=== PATIENT | male | born 1955 | race Caucasian/White ===

== ENCOUNTER 2018-06-13 18:34 | Emergency (ER) | payer SELFPAY ==
[~2018-06-13] VITALS: Ht 177.8 cm; Wt 103.6 kg
[~2018-06-13 18:34] MED LIST: ASPIRIN E.C. 8181 MG PO; CIALIS20 MG PO; DIOVAN 40MG40 MG PO; DUO-KAPS1 CAP PO; HYDRODIURIL50 MG PO; INDOCIN 25MG CA25 MG PO; LIPITOR20 MG PO; NORVASC 5MG5 MG/TAB PO; OMEGA 31000 MG PO; TRANDATE 100MG100 MG PO; ZYLOPRIM 300MG300 MG PO
[2018-06-13 18:38] VITALS: TEMP 98.1
[2018-06-13 20:22] LABS: BASO # 0.1 (0.0-0.2); BASO % 0.9 % (0.0-2.0); EOS # 0.3 (0.0-0.7); EOS % 3.4 % (0-4.0); GRAN # 4.9 (1.4-6.5); GRAN % 63.9 % (42.2-75.2); HEMATOCRIT 40.6 % (42.0-52.0); LYMPH # 1.7 (1.2-3.4); LYMPH % 21.8 % (20.0-51.0); MEAN CELL VOLUME 85 fl (80.0-100.0); MEAN CORPUSCULAR HEMOGLOBIN 31 pg (27.0-31.0); MEAN CORPUSCULAR HGB CONC 37 g/dl (33.0-37.0); MEAN PLATELET VOLUME 9.4 fl (7.4-10.4); MONO # 0.7 (0.1-0.6); MONO % 9.6 % (1.7-9.3); PLATELET COUNT 215 K/mm3 (130-400); REDCELL DISTRIBUTION WIDTH-CV 11.9 % (11.5-14.5)
[2018-06-13 20:33] LABS: COLLECTION METHOD CLEAN CATCH
[2018-06-13 20:33] LABS: CALCIUM 9.2 mg/dL (8.4-10.2); CREATININE, serum 0.96 mg/dL (0.66-1.25); POTASSIUM 3.3 mmol/L (3.4-5.0)
[2018-06-13] MEDS ORDERED: PHARMASSURE MA500 MG PO (20:40)
[2018-06-13] MEDS ORDERED: NATURAL FLAX1000 MG PO (20:40)
[2018-06-13] MEDS ORDERED: GARLIC100 MG PO (20:40)
[2018-06-13] MEDS ORDERED: MYSOLINE 5050 MG/TAB PO (20:40)
[2018-06-13] MEDS ORDERED: NORVASC 10MG10 MG PO (20:41)
[2018-06-13] MEDS ORDERED: KLOR-CON 1010 MEQ PO (20:41)
[2018-06-13] MEDS ORDERED: BENICAR40 MG PO (20:41)
[2018-06-13] MEDS ORDERED: KLOR-CON M2020 MEQ PO (20:41)
[2018-06-13] MEDS ORDERED: PRILOSEC 20MG20 MG PO (20:42)
[2018-06-13] MEDS ORDERED: HYGROTON 2525 MG/TAB PO (20:42)
[2018-06-13] MEDS ORDERED: NORMODYNE200 MG PO (20:42)
[2018-06-13 20:55] LABS: PH 5 (5-8); SQUAMOUS EPITHELIAL None Seen /hpf; URINE APPEARANCE Clear; URINE BACTERIA None Seen /hpf; URINE BILIRUBIN Negative (NEGATIVE); URINE BLOOD Negative (NEGATIVE); URINE COLOR Yellow; URINE GLUCOSE 3+ (NEGATIVE); URINE KETONE Negative (NEGATIVE); URINE LEUKOCYTE ESTERASE Negative (NEGATIVE); URINE NITRATE Negative (NEGATIVE); URINE PROTEIN(semi-quant) Negative (NEGATIVE); URINE RBC None Seen /hpf; URINE UROBILINOGEN Negative (NEGATIVE); URINE WBC None Seen /hpf
[2018-06-13 22:17] VITALS: BP 173/98; PULSE 61
== END 2018-06-13 22:21 | disposition home or self-care (01) ==
LOC: COL.ER 18:34
PROVIDERS: Physician Assistant
DX: S80.12XA Contusion of left lower leg, initial encounter (principal); R60.0 Localized edema; W01.198A Fall on same level from slipping, tripping and stumbling with subsequent striking against other object, initial encounter

== ENCOUNTER 2022-01-26 05:26 | Day surgery (SDC) | payer BC ==
[~2022-01-26] VITALS: Ht 177.8 cm; Wt 97.8 kg
[~2022-01-26 05:26] MED LIST changes: +BENICAR40 MG PO; +GARLIC100 MG PO; +HYGROTON 2525 MG/TAB PO; +KLOR-CON 1010 MEQ PO; +KLOR-CON M2020 MEQ PO; +MYSOLINE 5050 MG/TAB PO; +NATURAL FLAX1000 MG PO; +NORMODYNE200 MG PO; +NORVASC 10MG10 MG PO; +PHARMASSURE MA500 MG PO; +PRILOSEC 20MG20 MG PO
[2022-01-26 06:53] VITALS: BP 143/81; PULSE 85; TEMP 98.2
[2022-01-26] MEDS ORDERED: COZAAR100 MG PO (07:15)
[2022-01-26] MEDS ORDERED: GLUCOTROL XL10 MG PO (07:18)
[2022-01-26] MEDS ORDERED: ALDACTONE50 MG PO (07:23)
[2022-01-26] MEDS ORDERED: ACTOS 45MG45 MG/TAB PO (07:24)
[2022-01-26] MEDS ORDERED: PROTONIX 40MG T40 MG PO (07:25)
[2022-01-26] MEDS ORDERED: LIPITOR 40MG TA40 MG PO (07:26)
[2022-01-26] MEDS ORDERED: ANDROGEL1.62% TOP (07:27)
[2022-01-26] MEDS ORDERED: XIGDUO5/1000 (07:28)
[2022-01-26] MEDS ORDERED: NORCO 325 MG-51 TAB PO (08:07)
[2022-01-26 08:10] VITALS: BP 119/83; PULSE 70; TEMP 97.4
--- NOTE | 2022-01-26 08:10 | NUR ---
PT TO BAY 8 PER CART FORM OR. VS OBTAINED. PT DENIES ANY NEEDS AT THIS TIME. CALL LIGHT WITHIN REACH.
[2022-01-26 08:25] VITALS: BP 144/88; PULSE 66
--- NOTE | 2022-01-26 08:25 | NUR ---
PT CONTINUES TO DENY ANY NEEDS.
[2022-01-26 08:40] VITALS: BP 135/95; PULSE 69
--- NOTE | 2022-01-26 08:40 | NUR ---
PT TOLERATING ICE CHIPS. Antonino LANZA APRN AT BEDSIDE TO DISCUSS PT'S EKG RESULTS.
[2022-01-26 08:55] VITALS: BP 148/97; PULSE 70
--- NOTE | 2022-01-26 08:55 | NUR ---
DENIES ANY NEEDS.
[2022-01-26 09:10] VITALS: BP 140/78; PULSE 65
--- NOTE | 2022-01-26 09:10 | NUR ---
PT DENIES ANY NEEDS AT THIS TIME. WILL CONTINUE TO MONITOR.
[2022-01-26] MEDS ORDERED: ELIQUIS 2.5 PO (09:15)
--- NOTE | 2022-01-26 09:20 | NUR ---
LAB AT BEDSIDE FOR LAB DRAW. PT TOLERATING MUFFIN AND APPLE JUICE.
[2022-01-26 09:30] LABS: HEMOGLOBIN 16.3 g/dl (13.5-18.0); MEAN CELL VOLUME 84 fl (80.0-100.0); MEAN CORPUSCULAR HEMOGLOBIN 30 pg (27-31); MEAN CORPUSCULAR HGB CONC 36 g/dl (33.0-37.0); MEAN PLATELET VOLUME 9.8 fl (7.4-10.4); PLATELET COUNT 178 K/mm3 (130-400); RED BLOOD COUNT 5.36 M/mm3 (4.20-5.60); REDCELL DISTRIBUTION WIDTH-CV 11.8 % (11.5-14.5)
--- NOTE | 2022-01-26 09:50 | NUR ---
DISCHARGE EDUCATION COMPLETED WITH PT AND HIS . VERBALIZED UNDERSTANDING OF HOME AND FOLLOW UP CARE. ALL QUESTIONS ANSWERED. DISCHARGE PAPERWORK GIVEN TO PT.
[2022-01-26 09:51] LABS: ALBUMIN 4.2 gm/dL (3.4-4.8); BILIRUBIN,TOTAL 1.1 mg/dL (0.2-1.2); CALCIUM 9.4 mg/dL (8.4-10.2); CREATININE, serum 1.11 mg/dL (0.72-1.25); MAGNESIUM 1.9 mg/dL (1.6-2.6); POTASSIUM 3.7 mmol/L (3.5-4.5); TOTAL PROTEIN 6.8 gm/dL (6.2-8.1)
--- NOTE | 2022-01-26 10:00 | NUR ---
PT OFF UNIT PER WHEELCHAIR. PT DISCHARGED TO HOME WITH PER PERSONAL VEHICLE.
[2022-01-26 10:11] LABS: TSH w REFLEX 5.272 uIU/mL (0.350-4.940)
== END 2022-01-26 10:00 | disposition home or self-care (01) ==
LOC: SDCO 05:26
PROVIDERS: Nurse Practitioner
DX: K64.4 Residual hemorrhoidal skin tags (principal); K92.1 Melena
CPT/HCPCS: J0690; J2704; J3010; J7120